=== PATIENT | male | born 1960 | race African-American/Black ===

== ENCOUNTER 2016-07-20 14:45 | Emergency (ER) | payer BC ==
[~2016-07-20] VITALS: Ht 175.3 cm; Wt 100.7 kg
[~2016-07-20 14:45] MED LIST: CENTRUM SILVER1 EAC2 PO; CLEOCIN HCL300 MG PO; CLINDAMYCIN HC150 MG PO; COMBIVENT INH; COREG CR20 MG PO; DESYREL50 MG PO; DIOVAN320 MG PO; FUROSEMIDE 20 M20 MG PO; HYDRALAZINE 2525 M1 PO; NORCO 5-325 TA1 EACH PO; PEPCID AC20 M1 PO; PREDNISONE 20 M20 M1 PO; WELLBUTRIN XL300 M2 PO
[2016-07-20] MEDS ORDERED: CELEXA20 MG PO (15:55)
[2016-07-20 16:02] LABS: ABSOLUTE NEUTROPHILS 4.3 thou/uL (1.4-8.2); BASOPHILS 1.2 % (0.0-2.0); EOSINOPHILS 1.4 % (0.0-3.0); HEMATOCRIT 42.3 % (42.0-52.0); HEMOGLOBIN 14.5 gm/dL (14.0-18.0); LYMPHOCYTES 31.2 % (24.0-44.0); MCH 31.4 pg (26.0-34.0); MCHC 34.3 g/dL (28.0-37.0); MCV 91.5 fL (80.0-100.0); MONOCYTES 6.7 % (1.0-8.0); PLATELET COUNT 224 thou/uL (150-400); POLYS 59.5 % (36.0-66.0); RBC 4.63 mil/uL (4.50-6.00); RDW 13.6 % (10.5-14.5); WBC 7.2 thou/uL (4.0-11.0)
[2016-07-20 16:04] LABS: MANUAL DIFF NO
[2016-07-20 16:10] LABS: CALCIUM 9.2 mg/dL (8.5-10.1); CREATININE 1.2 mg/dL (0.6-1.3); POTASSIUM 4.1 mmol/L (3.5-5.1)
[2016-07-20 16:14] LABS: ALBUMIN 3.3 g/dL (3.4-5.0); TOTAL BILIRUBIN 0.6 mg/dL (<0.1-1.0); TOTAL PROTEIN 7.3 g/dL (6.4-8.2)
[2016-07-20 17:41] LABS: URINE BILIRUBIN NEGATIVE (Negative); URINE BLOOD NEGATIVE (Negative); URINE COLOR YELLOW; URINE GLUCOSE-RANDOM* NEGATIVE (Negative); URINE KETONES NEGATIVE (Negative); URINE LEUKOCYTES-REFLEX NEGATIVE (Negative); URINE PROTEIN (DIPSTICK) NEGATIVE (Negative); URINE SPECIFIC GRAVITY <= 1.005 (1.003-1.035)
[2016-07-20] MEDS ORDERED: ONDANSETRON HCL4 M2 PO (17:46)
[2016-07-20] MEDS ORDERED: BENTYL 20 MG TA20 M1 PO (17:46)
[2016-07-20 18:10] VITALS: BP 120/69
== END 2016-07-20 18:15 | disposition home or self-care (01) ==
LOC: ER 14:45
PROVIDERS: Physician Assistant
DX: R11.2 Nausea with vomiting, unspecified (principal); R10.32 Left lower quadrant pain; R19.7 Diarrhea, unspecified; I10 Essential (primary) hypertension; F17.210 Nicotine dependence, cigarettes, uncomplicated; Z90.49 Acquired absence of other specified parts of digestive tract; Z88.1 Allergy status to other antibiotic agents; Z88.8 Allergy status to other drugs, medicaments and biological substances; Z88.2 Allergy status to sulfonamides

== ENCOUNTER 2016-07-25 16:43 | Emergency (ER) | payer BC ==
[~2016-07-25] VITALS: Ht 175.3 cm; Wt 100.7 kg
[~2016-07-25 16:43] MED LIST changes: +BENTYL 20 MG TA20 M1 PO; +CELEXA20 MG PO; +ONDANSETRON HCL4 M2 PO
[2016-07-25 17:47] LABS: ABSOLUTE NEUTROPHILS 3.1 thou/uL (1.4-8.2); EOSINOPHILS 1.7 % (0.0-3.0); HEMATOCRIT 39.4 % (42.0-52.0); HEMOGLOBIN 13.3 gm/dL (14.0-18.0); LYMPHOCYTES 37.6 % (24.0-44.0); MCH 30.9 pg (26.0-34.0); MCHC 33.6 g/dL (28.0-37.0); MCV 91.9 fL (80.0-100.0); MONOCYTES 8.2 % (1.0-8.0); PLATELET COUNT 252 thou/uL (150-400); POLYS 51.5 % (36.0-66.0); RBC 4.29 mil/uL (4.50-6.00); RDW 13.7 % (10.5-14.5)
[2016-07-25 17:48] LABS: MANUAL DIFF NO
[2016-07-25 17:54] LABS: CALCIUM 9.1 mg/dL (8.5-10.1); CREATININE 1.2 mg/dL (0.6-1.3); POTASSIUM 3.8 mmol/L (3.5-5.1)
[2016-07-25 17:58] LABS: ALBUMIN 3.4 g/dL (3.4-5.0); TOTAL BILIRUBIN 0.4 mg/dL (<0.1-1.0); TOTAL PROTEIN 6.9 g/dL (6.4-8.2)
[2016-07-25 18:50] VITALS: BP 136/84
[2016-07-25 19:01] LABS: URINE BILIRUBIN NEGATIVE (Negative); URINE BLOOD NEGATIVE (Negative); URINE COLOR YELLOW; URINE GLUCOSE-RANDOM* NEGATIVE (Negative); URINE KETONES TRACE (Negative); URINE LEUKOCYTES-REFLEX NEGATIVE (Negative); URINE PROTEIN (DIPSTICK) NEGATIVE (Negative)
[2016-07-25] MEDS ORDERED: PHENERGAN 25 MG25 M1 PO (19:08)
== END 2016-07-25 19:18 ==
LOC: ER 16:43
PROVIDERS: Physician Assistant
DX: R10.33 Periumbilical pain (principal); R10.13 Epigastric pain; R14.3 Flatulence; R11.0 Nausea; I10 Essential (primary) hypertension; F17.210 Nicotine dependence, cigarettes, uncomplicated; Z90.49 Acquired absence of other specified parts of digestive tract; Z98.52 Vasectomy status; Z88.1 Allergy status to other antibiotic agents; Z88.2 Allergy status to sulfonamides; Z88.8 Allergy status to other drugs, medicaments and biological substances

== ENCOUNTER 2017-06-02 22:08 | Emergency (ER) | payer BC ==
[~2017-06-02] VITALS: Ht 175.3 cm; Wt 90.7 kg
[~2017-06-02 22:08] MED LIST changes: +PHENERGAN 25 MG25 M1 PO
[2017-06-02] MEDS ORDERED: PENICILLIN V P500 MG PO (22:31)
[2017-06-02] MEDS ORDERED: MOBIC15 MG PO (22:32)
== END 2017-06-02 22:45 | disposition home or self-care (01) ==
LOC: ER 22:08
DX: K08.89 Other specified disorders of teeth and supporting structures (principal); H92.02 Otalgia, left ear; I10 Essential (primary) hypertension; Z90.49 Acquired absence of other specified parts of digestive tract; F17.210 Nicotine dependence, cigarettes, uncomplicated; Z88.2 Allergy status to sulfonamides; Z88.1 Allergy status to other antibiotic agents; Z88.8 Allergy status to other drugs, medicaments and biological substances

== ENCOUNTER 2017-07-16 22:03 | Emergency (ER) | payer BC ==
[~2017-07-16] VITALS: Ht 175.3 cm; Wt 94.3 kg
[~2017-07-16 22:03] MED LIST changes: +MOBIC15 MG PO; +PENICILLIN V P500 MG PO
[2017-07-16] MEDS ORDERED: DEPAKOTE 250MG250 MG PO (22:36)
[2017-07-16 23:12] LABS: ABSOLUTE NEUTROPHILS 4.5 thou/uL (1.4-8.2); BASOPHILS 0.7 % (0.0-2.0); EOSINOPHILS 2.6 % (0.0-3.0); HEMATOCRIT 35.9 % (42.0-52.0); HEMOGLOBIN 12.2 gm/dL (14.0-18.0); LYMPHOCYTES 30.6 % (24.0-44.0); MCH 31.3 pg (26.0-34.0); MCHC 34.1 g/dL (28.0-37.0); MCV 91.8 fL (80.0-100.0); MONOCYTES 7.6 % (1.0-8.0); PLATELET COUNT 227 thou/uL (150-400); POLYS 58.5 % (36.0-66.0); RBC 3.91 mil/uL (4.50-6.00); RDW 13.2 % (10.5-14.5); WBC 7.6 thou/uL (4.0-11.0)
[2017-07-16 23:25] LABS: CALCIUM 8.8 mg/dL (8.5-10.1); CREATININE 1.1 mg/dL (0.7-1.3); URINE BILIRUBIN NEGATIVE (Negative); URINE BLOOD NEGATIVE (Negative); URINE CLARITY CLEAR; URINE COLOR YELLOW; URINE GLUCOSE-RANDOM* NEGATIVE (Negative); URINE KETONES NEGATIVE (Negative); URINE LEUKOCYTES-REFLEX NEGATIVE (Negative); URINE NITRITE-REFLEX NEGATIVE (Negative); URINE PROTEIN (DIPSTICK) NEGATIVE (Negative)
[2017-07-16 23:30] LABS: ALBUMIN 3.1 g/dL (3.4-5.0); MAGNESIUM 1.9 mg/dL (1.8-2.4); TOTAL BILIRUBIN 0.4 mg/dL (<0.1-1.0); TOTAL PROTEIN 6.3 g/dL (6.4-8.2)
[2017-07-16 23:31] LABS: POTASSIUM 2.9 mmol/L (3.5-5.1)
[2017-07-16 23:32] LABS: AMP/METHAMP Negative (Negative); BARBITURATES Negative (Negative); BENZODIAZEPINES Negative (Negative); COCAINE Negative (Negative); METHADONE Negative (Negative); OPIATES Negative (Negative); PCP Negative (Negative)
[2017-07-16] MEDS ORDERED: DEPAKOTE ER500 MG PO (23:40)
[2017-07-16] MEDS ORDERED: DEPAKOTE 250MG250 M1 PO (23:40)
[2017-07-16] MEDS ORDERED: POTASSIUM20 PO (23:40)
== END 2017-07-17 00:02 | disposition home or self-care (01) ==
LOC: ER 22:03
PROVIDERS: Emergency Medicine
DX: G40.909 Epilepsy, unspecified, not intractable, without status epilepticus (principal); E87.6 Hypokalemia; Z76.0 Encounter for issue of repeat prescription; R25.1 Tremor, unspecified; I10 Essential (primary) hypertension; Z88.1 Allergy status to other antibiotic agents; Z88.2 Allergy status to sulfonamides; Z88.8 Allergy status to other drugs, medicaments and biological substances; F17.210 Nicotine dependence, cigarettes, uncomplicated

== ENCOUNTER 2018-02-23 20:04 | Emergency (ER) | payer BC ==
[~2018-02-23] VITALS: Ht 175.3 cm; Wt 86.2 kg
[~2018-02-23 20:04] MED LIST changes: +DEPAKOTE 250MG250 M1 PO; +DEPAKOTE 250MG250 MG PO; +DEPAKOTE ER500 MG PO; +POTASSIUM20 PO
[2018-02-23] MEDS ORDERED: CATAPRESS3 TRANSDERM (20:50)
[2018-02-23] MEDS ORDERED: NORCO 5-325 TA1 EACH PO (22:32)
[2018-02-23 23:18] VITALS: BP 168/93
== END 2018-02-23 23:20 | disposition home or self-care (01) ==
LOC: ER 20:04
DX: M77.9 Enthesopathy, unspecified (principal); I10 Essential (primary) hypertension; F17.210 Nicotine dependence, cigarettes, uncomplicated; Z88.1 Allergy status to other antibiotic agents; Z88.2 Allergy status to sulfonamides; Z88.6 Allergy status to analgesic agent; Z88.8 Allergy status to other drugs, medicaments and biological substances

== ENCOUNTER 2018-05-12 09:23 | Inpatient (IN) | payer BC ==
[~2018-05-12] VITALS: Ht 175.3 cm; Wt 89.4 kg
[2018-05-12] VITALS (11 sets, daily range): BP systolic 130–160; BP diastolic 84–110
[~2018-05-12 09:23] MED LIST changes: +CATAPRESS3 TRANSDERM; -COREG CR20 MG PO; +COREG25 MG PO; -DEPAKOTE 250MG250 MG PO; +DEPAKOTE ER250 MG PO
[2018-05-12 09:39] LABS: ABSOLUTE NEUTROPHILS 5.6 thou/uL (1.4-8.2); BASOPHILS 0.6 % (0.0-2.0); EOSINOPHILS 0.9 % (0.0-3.0); HEMATOCRIT 41.3 % (42.0-52.0); HEMOGLOBIN 13.9 gm/dL (14.0-18.0); LYMPHOCYTES 34.9 % (24.0-44.0); MCH 31.3 pg (26.0-34.0); MCHC 33.6 g/dL (28.0-37.0); MONOCYTES 5.2 % (1.0-8.0); PLATELET COUNT 288 thou/uL (150-400); POLYS 58.4 % (36.0-66.0); RBC 4.44 mil/uL (4.50-6.00); RDW 13.4 % (10.5-14.5); WBC 9.5 thou/uL (4.0-11.0)
[2018-05-12 09:42] LABS: OBSERVED RETIC COUNT 1.31 % (0.6-2.6)
[2018-05-12 09:46] LABS: ANION GAP 12 mmol/L (7-16); BUN 8 mg/dL (7-18); CALCIUM 9.4 mg/dL (8.5-10.1); CHLORIDE 103 mmol/L (98-107); CO2 23 mmol/L (21-32); CREATININE 1.1 mg/dL (0.7-1.3); GLUCOSE 88 mg/dL (74-106); SODIUM 138 mmol/L (136-145)
[2018-05-12 09:49] LABS: PROTIME 10.2 Seconds (9.3-11.4)
[2018-05-12 09:54] LABS: ALBUMIN 3.5 g/dL (3.4-5.0); SGOT 25 U/L (15-37); SGPT 32 U/L (30-65); TOTAL BILIRUBIN 0.5 mg/dL (<0.1-1.0); TOTAL PROTEIN 7.5 g/dL (6.4-8.2); TROPONIN-I <0.06 ng/mL (<0.06)
[2018-05-12] MEDS ORDERED: DEPAKOTE ER250 MG PO (10:27)
[2018-05-12] MEDS ORDERED: PRILOSEC 20 MG20 MG PO (10:28)
[2018-05-12] MEDS ORDERED: NEURONTIN 300300 M1 PO (10:28)
[2018-05-12] MEDS ORDERED: AMBIEN 5 MG TABL5 M1 PO (10:28)
--- NOTE | 2018-05-12 12:39 | 2DMMODE ---
[facility] [employer] [place] [place] [address] 2 D/M-MODE ECHOCARDIOGRAM Name: NITA MURRAY LATRELL Room #: 170-6 ADM IN .R.#: [id number] Admission: 05/12/18 Attend Phys: Eleuterio Lopez, Discharge: Date of : 64 Date of Service: 05/12/18 1239 Report #: [id number] THIS REPORT FOR: //name// APPROVED REPORT Study performed: 05/12/2018 11:10:52 EXAM: Comprehensive 2D, Doppler, and color-flow Echocardiogram Patient Location: ER Status: routine BSA: 2.05 HR: 75 bpm BP: 133/87 mmHg Rhythm: NSR Other Information Study Quality: Adequate Indications Dyspnea Chest Pain Hx: COPD, HTN, HLP, current tobacco abuse. 2D Dimensions RVDd: 33.36 mm IVSd: 12.15 (7-11mm) LVOT Diam: 24.62 (18-24mm) LVDd: 41.43 mm PWd: 10.40 (7-11mm) Ascending Ao: 33.64 (22-36mm) LVDs: 27.37 (25-40mm) Aortic Root: 35.07 mm Volumes Left Atrial Volume (Systole) Single Plane 4CH: 54.28 mL Single Plane 2CH: 45.91 mL LA ESV Index: 27.00 mL/m2 Aortic Valve AoV Peak Alonso.: 1.46 m/s AO Peak Gr.: 8.49 mmHg LVOT Max P.01 mmHg LVOT Max V: 1.42 m/s ROSITA Vmax: 4.62 cm2 Mitral Valve E/A Ratio: 0.8 [facility] [place] [place] [address] 2 D/M-MODE ECHOCARDIOGRAM Name: NITA MURRAY LATRELL Room #: 170-6 ADM IN ..#: [id number] Admission: 05/12/18 Attend Phys: Eleuterio Lopez, Discharge: Date of : 64 Date of Service: 05/12/18 1239 Report #: [id number] MV Decel. Time: 231.35 ms MV E Max Alonso.: 0.50 m/s MV A Alonso.: 0.66 m/s MV PHT: 67.09 ms IVRT: 79.58 ms Pulmonary Valve PV Peak Alonso.: 1.22 m/s PV Peak Gr.: 5.99 mmHg Pulmonary Vein P Vein S: 0.59 m/s P Vein A: 0.36 m/s P Vein D: 0.40 m/s P Vein A Dur.: 124.6 msec P Vein S/D Ratio: 1.48 Tricuspid Valve TR Peak Alonso.: 2.33 m/s RAP Estimate: 5.00 mmHg TR Peak Gr.: 21.67 mmHg PA Pressure: 27.00 mmHg Left Ventricle The left ventricle is normal size. There is normal LV segmental wall motion. Mild concentric left ventricular hypertrophy. Left ventricular systolic function is normal. LVEF is 65%. Mild diastolic dysfunction is present (impaired relaxation pattern). Right Ventricle The right ventricle is normal size. The right ventricular systolic function is normal. Atria The left atrium size is normal. The right atrium size is normal. Aortic Valve The aortic valve is normal in structure. No aortic regurgitation is present. There is no aortic valvular stenosis. Mitral Valve The mitral valve is normal in structure. There is no mitral valve regurgitation noted. No evidence of mitral valve stenosis. Tricuspid Valve The tricuspid valve is normal in structure. Trace tricuspid regurgitation. Estimated PAP is 25-30mmHg. Pulmonic Valve [address] [address] 2 D/M-MODE ECHOCARDIOGRAM Name: NITA MURRAY LATRELL Room #: 170-6 [facility] IN [facility]#: [id number] Admission: 05/12/18 Attend Phys: Eleuterio Lopez, Discharge: Date of : 64 Date of Service: 05/12/18 1239 Report #: [id number] The pulmonary valve is normal in structure. Trace pulmonic regurgitation. Great Vessels The aortic root is normal in size. The ascending aorta is normal in size. IVC is normal in size and collapses >50% with inspiration. Pericardium There is no pericardial effusion. <Conclusion> Left ventricular systolic function is normal. There is normal LV segmental wall motion. Mild concentric left ventricular hypertrophy. LVEF is 65%. Mild diastolic dysfunction The aortic valve is normal in structure. No aortic regurgitation or stenosis The mitral valve is normal in structure. No mitral insufficiency Trace tricuspid regurgitation. Estimated pulmonary artery pressure of 25-30mmHg. There is no pericardial effusion. <ELECTRONICALLY SIGNED> By: Al Mckeon MD, FACC 05/12/18 1239 1239 1239 Al Mckeon MD, FACC /INF
[2018-05-12 13:56] LABS: CHOLESTEROL 112 mg/dL (<200); HDL CHOLESTEROL 37 mg/dL (>40); LDL CHOLESTEROL 59 mg/dL (<100); TRIGLYCERIDE 82 mg/dL (<150); TROPONIN-I <0.06 ng/mL (<0.06); VLDL 16 mg/dL (<40)
--- NOTE | 2018-05-12 13:57 | EKG ---
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 : 1960 Requested By: Israel Caldwell Order Number: [id number] MD: Max Combs Measurements Intervals [place] Rate: 87 P: 69 [place]: 143 QRS: 71 QRSD: 77 T: 32 QT: 355 QTc: 427 Interpretive Statements Sinus rhythm Probable left atrial enlargement Borderline T wave abnormalities Minimal ST elevation, anterior leads Compared to ECG 12/15/2011 20:40:51 T-wave abnormality now present ST (T wave) deviation still present Electronically Signed On 05-12-2018 13:57:19 HULL MOLDER by Max Combs [email or web address] <ELECTRONICALLY SIGNED> By: Max Combs MD 05/12/18 1357 0928 0928 Max Combs MD /EPI
--- NOTE | 2018-05-12 13:57 | EKG ---
[address] [address] ELECTROCARDIOGRAM REPORT Name: NITA MURRAY Room #: 209-P ADM IN M.R.#: [id number] Admission: 05/12/18 Attend Phys: Eleuterio Lopez MD Discharge: Date of : 64 Report #: [id number] THIS REPORT FOR: //name// [facility] ED Test Date: 2018-05-12 Test Time: 09:49:47 Pat Name: NITA MURRAY Department: Room: 209 Gender: M Licensed Guide: DENYG : 1960 Requested By: Israel Caldwell Order Number: [id number] MD: Max Combs Measurements Intervals [place] Rate: 98 P: 61 [place]: 138 QRS: 71 QRSD: 90 T: 39 QT: 392 QTc: 501 Interpretive Statements Sinus rhythm Probable left atrial enlargement Compared to ECG 12/15/2011 20:40:51 ST (T wave) deviation no longer present Electronically Signed On 05-12-2018 13:57:40 MORNING SHOW HOST by Max Combs [email or web address] <ELECTRONICALLY SIGNED> By: Max Combs MD 05/12/18 1357 0949 0949 Max Combs MD /EPI
--- NOTE | 2018-05-12 19:34 | NUR ---
PT ADMITED FROM [facility]. ADMISSION HX AND ASSESSMENT COMPLETED. ALERT AND ORIENTED X4. RECEIVED PRN PAIN ME WITH PARTIAL RELIEF. RIGHT GROIN INCISION C/D/I. NO HEMATOMA NOTED. WILL CONTINUE TO MONITOR.
[2018-05-13 00:51] VITALS: BP 144/84
[2018-05-13 03:06] LABS: URINE BILIRUBIN NEGATIVE (Negative); URINE BLOOD NEGATIVE (Negative); URINE CLARITY CLEAR; URINE COLOR YELLOW; URINE GLUCOSE-RANDOM* NEGATIVE (Negative); URINE KETONES NEGATIVE (Negative); URINE LEUKOCYTES-REFLEX NEGATIVE (Negative); URINE NITRITE-REFLEX NEGATIVE (Negative); URINE PROTEIN (DIPSTICK) NEGATIVE (Negative)
--- NOTE | 2018-05-13 03:31 | NUR ---
PT POST CARDIAC CATH, WITHOUT INTERVENTION. ALERT AND ORIENTED. COMPLAIN OF HEADACHE. ONE TIME NORCO AND AMLODOPINE GIVEN AT THE BEGINNING OF THE SHIFT. CATH SITE C/D/I. POSSIBLE DC TODAY. NO FURTHER COMPLAINS.
[2018-05-13 04:13] LABS: ANION GAP 9 mmol/L (7-16); BUN 13 mg/dL (7-18); CALCIUM 8.6 mg/dL (8.5-10.1); CHLORIDE 105 mmol/L (98-107); CHOLESTEROL 118 mg/dL (<200); CO2 26 mmol/L (21-32); GLUCOSE 102 mg/dL (74-106); HDL CHOLESTEROL 38 mg/dL (>40); LDL CHOLESTEROL 54 mg/dL (<100); POTASSIUM 4.4 mmol/L (3.5-5.1); SERUM ASSESSMENT Clear; SODIUM 140 mmol/L (136-145); TC:HDL 3.1 Ratio (Not establshd); TRIGLYCERIDE 133 mg/dL (<150); VLDL 27 mg/dL (<40)
[2018-05-13 04:45] VITALS: BP 120/79
[2018-05-13 05:41] LABS: BASOPHILS 0.7 % (0.0-2.0); EOSINOPHILS 1.9 % (0.0-3.0); HEMATOCRIT 36.4 % (42.0-52.0); HEMOGLOBIN 12.3 gm/dL (14.0-18.0); LYMPHOCYTES 37.6 % (24.0-44.0); MCH 32.1 pg (26.0-34.0); MCHC 33.7 g/dL (28.0-37.0); MCV 95.1 fL (80.0-100.0); MONOCYTES 6.2 % (1.0-8.0); PLATELET COUNT 229 thou/uL (150-400); POLYS 53.6 % (36.0-66.0); RBC 3.82 mil/uL (4.50-6.00); RDW 13.5 % (10.5-14.5); WBC 7.5 thou/uL (4.0-11.0)
[2018-05-13 08:35] VITALS: BP 143/84
[2018-05-13] MEDS ORDERED: AMLODIPINE BESYL5 M1 PO (09:38)
[2018-05-13 09:53] VITALS: BP 143/84
--- NOTE | 2018-05-13 10:36 | NUR ---
ASSESSMENT DOCUMENTED. PT ALERT AND ORIENTED. DENIED HAVING PAIN OR DISCOMFORT. VSS. RIGH GROIN INCISION C/D/I. NO HEMATOMA NOTED. SEEN BY DR. EDMOND AND DR. GALINDO. ORDERS GIVEN TO DISCHARGE PT TO HOME. DISCHARGE INSRUCTIONS GIVEN TO PT AND THE . PT LEFT THE FACILITY ACCOMPANIED BY THE .
--- NOTE | 2018-05-13 17:53 | CATHLAB ---
[facility] [employer] [place] [address] INVASIVE PROCEDURE REPORT Name: NITA MURRAY LATRELL Room #: 209-P DIS IN ..#: [id number] Admission: 05/12/18 Attend Phys: Eleuterio Lopez, Discharge: 05/13/18 Date of : 64 Date of Service: 05/13/18 1752 Report #: [id number] THIS REPORT FOR: //name// APPROVED REPORT Study performed: 05/12/2018 12:03:28 Patient Details Patient Status: ED Room #: The patient is a 57 year-old male Event Personnel Alfred Salazar Shovel Oiler, Jayden Perez RN, Andie Del Rio RTR, HO Gill, Simone Marte Monitor Procedures Performed Left Heart Cath w/or w/o Coronaries [id number] [facility] Abdominal Aortography [id number] Indication Chest pain Procedure Narrative The Right Groin^ was infiltrated with 1% Lidocaine subcutaneous anesthesia. A PINNACLE 6FR Sheath #[id number] sheath was inserted into the RFA^. Coronary angiography was performed using coronary diagnostic catheters. The right coronary system was accessed and visualized with a JR4 catheter. The left coronary system was accessed and visualized with a JL4 catheter. The left ventricle was accessed and visualized with a PIGTAIL catheter. Left ventriculogram was performed in 30 degree projection. An aortogram of the abdominal aorta was performed. Closure device was deployed with a 6 Fr MYNXGRIP 6/7F #[id number]. Intraoperative Conscious Sedation Sedation start time: 12.47 Case end Time: 13.19 Fentanyl 50 mcg Versed 1.5 mg Fluoro Time: 1.44 minutes Dose: DAP 57452 cGycm2 325 mGy Contrast Type and Amount: Omnipaque 120 ml Hemodynamics The aortic pressure is 119/77 mmHg with a mean of 58 mmHg. The left [facility] [place] [address] INVASIVE PROCEDURE REPORT Name: TERRINITAAMANDA SAMS Room #: 209-P [facility] IN .R.#: [id number] Admission: 05/12/18 Attend Phys: Eleuterio Lopez, Discharge: 05/13/18 Date of : 64 Date of Service: 05/13/18 1752 Report #: [id number] ventricular pressure is 144/6 mmHg with a mean of mmHg. The left ventricular end diastolic pressure is 12 mmHg. Conclusion #1 normal left ventricular size and hyperdynamic LV function EF 65-70% #2 abdominal aorta is intact without aneurysm single renal arteries appear to be patent as does iliac system. No aneurysm #3 large left main free of disease giving rise to LAD and circumflex #4 LAD with mild mid vessel irregularity extends around the apex. No occlusive disease #5 large but nondominant circumflex system widely patent #6 large dominant right coronary artery widely patent Recommendations and plan: Continue aggressive risk factor modification. Hypertensive control and smoking cessation strongly recommended <ELECTRONICALLY SIGNED> By: Alfred Salazar MD, FACC 05/13/181751 51 51 Alfred Salazar MD, FACC /INF
== END 2018-05-13 10:41 | disposition home or self-care (01) | DRG 287 ==
LOC: ER 09:23 → 2N 10:09 → EROBS 10:09 → 2N 13:41 → ENTRNSPT 05-13 10:23 → EDTRNSPTSTS 05-13 10:25 → 2N 05-13 10:41
PROVIDERS: Internal Medicine Cardiovascular Disease; Nurse Practitioner; Physician Assistant; ADMIT Internal Medicine
DX: I20.0 Unstable angina (principal); I10 Essential (primary) hypertension; E78.5 Hyperlipidemia, unspecified; F17.210 Nicotine dependence, cigarettes, uncomplicated; G40.909 Epilepsy, unspecified, not intractable, without status epilepticus; L29.9 Pruritus, unspecified; T50.995A Adverse effect of other drugs, medicaments and biological substances, initial encounter; I07.1 Rheumatic tricuspid insufficiency; D55.0 Anemia due to glucose-6-phosphate dehydrogenase [G6PD] deficiency; E78.00 Pure hypercholesterolemia, unspecified; Z86.73 Personal history of transient ischemic attack (TIA), and cerebral infarction without residual deficits; Z90.49 Acquired absence of other specified parts of digestive tract; Z98.52 Vasectomy status; Z84.89 Family history of other specified conditions; Z88.1 Allergy status to other antibiotic agents; Z88.6 Allergy status to analgesic agent; Z88.2 Allergy status to sulfonamides; Z88.8 Allergy status to other drugs, medicaments and biological substances; I25.2 Old myocardial infarction; Z71.6 Tobacco abuse counseling; Y92.89 Other specified places as the place of occurrence of the external cause
CPT/HCPCS: 10081

== ENCOUNTER 2018-06-01 08:24 | Emergency (ER) | payer BC ==
[~2018-06-01] VITALS: Ht 175.3 cm; Wt 80.3 kg
[~2018-06-01 08:24] MED LIST changes: +AMBIEN 5 MG TABL5 M1 PO; +AMLODIPINE BESYL5 M1 PO; +NEURONTIN 300300 M1 PO; +PRILOSEC 20 MG20 MG PO
--- NOTE | 2018-06-01 08:48 | EKG ---
[place] [address] [facility] [employer] [place] [address] ELECTROCARDIOGRAM REPORT Name: NITA MURRAY Room #: PRE 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 : 1960 Requested By: Vicente Bhatia Order Number: [id number] MD: Al Mckeon Measurements Intervals [place] Rate: 98 P: 93 [place]: 159 QRS: 77 QRSD: 96 T: 69 QT: 332 QTc: 424 Interpretive Statements Sinus tachycardia Occasional premature ventricular complexes Nonspecific ST segment abnormality Compared to ECG 05/12/2018 09:49:47 Premature ventricular complexes are now present Electronically Signed On 06-01-2018 8:48:21 BANK ACCOUNTANT by Al Mckeon [email or web address] <ELECTRONICALLY SIGNED> By: Al Mckeon MD, [facility] 06/01/18 0848 0833 2 Al Mckeon MD, FACC /EPI
[2018-06-01 08:56] LABS: ANION GAP 15 mmol/L (7-16); BUN 10 mg/dL (7-18); CHLORIDE 101 mmol/L (98-107); CO2 23 mmol/L (21-32); CREATININE 1.1 mg/dL (0.7-1.3); GLUCOSE 92 mg/dL (74-106); SODIUM 139 mmol/L (136-145)
[2018-06-01 09:00] LABS: ABSOLUTE NEUTROPHILS 3.9 thou/uL (1.4-8.2); BASOPHILS 1.9 % (0.0-2.0); EOSINOPHILS 0.9 % (0.0-3.0); HEMATOCRIT 36.9 % (42.0-52.0); HEMOGLOBIN 12.9 gm/dL (14.0-18.0); LYMPHOCYTES 44.7 % (24.0-44.0); MCH 31.8 pg (26.0-34.0); MCHC 35.1 g/dL (28.0-37.0); MCV 90.5 fL (80.0-100.0); MONOCYTES 7.3 % (1.0-8.0); PLATELET COUNT 233 thou/uL (150-400); POLYS 45.2 % (36.0-66.0); RBC 4.07 mil/uL (4.50-6.00); RDW 13.6 % (10.5-14.5); WBC 8.6 thou/uL (4.0-11.0)
[2018-06-01 09:04] LABS: TROPONIN-I <0.06 ng/mL (<0.06)
[2018-06-01 10:28] VITALS: BP 120/84
== END 2018-06-01 10:29 | disposition home or self-care (01) ==
LOC: ER 08:24
PROVIDERS: Emergency Medicine
DX: R06.00 Dyspnea, unspecified (principal); R06.02 Shortness of breath; I10 Essential (primary) hypertension; E78.5 Hyperlipidemia, unspecified; Z90.49 Acquired absence of other specified parts of digestive tract; F17.210 Nicotine dependence, cigarettes, uncomplicated; Z88.1 Allergy status to other antibiotic agents; Z88.2 Allergy status to sulfonamides; Z88.5 Allergy status to narcotic agent; Z88.8 Allergy status to other drugs, medicaments and biological substances

== ENCOUNTER 2018-06-02 10:33 | Inpatient (IN) | payer BC ==
[2018-06-02] VITALS (7 sets, daily range): BP systolic 127–187; BP diastolic 86–114
[~2018-06-02] VITALS: Ht 175.3 cm; Wt 89.4 kg
[2018-06-02 11:01] LABS: ABSOLUTE NEUTROPHILS 4.7 thou/uL (1.4-8.2); EOSINOPHILS 1.7 % (0.0-3.0); HEMATOCRIT 39.5 % (42.0-52.0); HEMOGLOBIN 14.1 gm/dL (14.0-18.0); LYMPHOCYTES 32.3 % (24.0-44.0); MCH 32.6 pg (26.0-34.0); MCHC 35.7 g/dL (28.0-37.0); MCV 91.3 fL (80.0-100.0); MONOCYTES 6.1 % (1.0-8.0); PLATELET COUNT 252 thou/uL (150-400); POLYS 57.9 % (36.0-66.0); RBC 4.33 mil/uL (4.50-6.00); RDW 13.5 % (10.5-14.5); WBC 8.2 thou/uL (4.0-11.0)
[2018-06-02 11:09] LABS: ANION GAP 12 mmol/L (7-16); BUN 9 mg/dL (7-18); CALCIUM 9.9 mg/dL (8.5-10.1); CHLORIDE 103 mmol/L (98-107); CO2 25 mmol/L (21-32); CREATININE 1.1 mg/dL (0.7-1.3); GLUCOSE 106 mg/dL (74-106); POTASSIUM 3.5 mmol/L (3.5-5.1); SODIUM 140 mmol/L (136-145)
[2018-06-02 11:13] LABS: APTT 30.3 Seconds (24.5-32.8); PROTIME 10.3 Seconds (9.3-11.4)
[2018-06-02 11:15] LABS: URINE BILIRUBIN NEGATIVE (Negative); URINE BLOOD NEGATIVE (Negative); URINE CLARITY CLEAR; URINE COLOR YELLOW; URINE GLUCOSE-RANDOM* NEGATIVE (Negative); URINE KETONES NEGATIVE (Negative); URINE LEUKOCYTES-REFLEX NEGATIVE (Negative); URINE NITRITE-REFLEX NEGATIVE (Negative); URINE PROTEIN (DIPSTICK) NEGATIVE (Negative); URINE SPECIFIC GRAVITY <= 1.005 (1.005-1.035); URINE UROBILINOGEN 0.2 E.U./dl (0.2-1.0)
[2018-06-02 11:18] LABS: ALBUMIN 3.7 g/dL (3.4-5.0); MAGNESIUM 1.9 mg/dL (1.8-2.4); SGOT 16 U/L (15-37); SGPT 31 U/L (30-65); TOTAL BILIRUBIN 0.5 mg/dL (<0.1-1.0); TOTAL PROTEIN 7.6 g/dL (6.4-8.2); TROPONIN-I <0.06 ng/mL (<0.06)
--- NOTE | 2018-06-02 14:00 | NUR ---
PT ADMITTED FROM ED WITH REPORTS OF SHAKING AND SPEECH DIFFICULTY YESTERDAY FOR WHICH HE WENT TO ED.. HE BEGAN HAVING SAME SYMPTOMS AGAIN TODAY AND RETURNED TO ED..NOW HE STATES HE HAS PAIN TO RT UPPER GUM AND RATES IT A 10. HE STATED HE LOST A FRONT TOOTH A FEW WEEKS AGO..
--- NOTE | 2018-06-02 16:01 | EKG ---
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 : 1960 Requested By: Homer Ochoa Order Number: [id number] MD: Al Mckeon Measurements Intervals [place] Rate: 82 P: 63 [place]: 144 QRS: 64 QRSD: 92 T: 57 QT: 367 QTc: 429 Interpretive Statements Sinus rhythm No significant abnormality Compared to ECG 06/01/2018 08:33:51 Ventricular premature complex(es) no longer present Electronically Signed On 06-02-2018 16:01:43 ARCHITECTURAL INTERN by Al Mckeon [email or web address] <ELECTRONICALLY SIGNED> By: Al Mckeon MD, [facility] 06/02/18 1601 1044 1044 Al Mckeon MD, [facility] /EPI
[2018-06-02 16:27] LABS: AMP/METHAMP Negative (Negative); BARBITURATES Negative (Negative); BENZODIAZEPINES Negative (Negative); COCAINE Negative (Negative); METHADONE Negative (Negative); OPIATES Negative (Negative); PCP Negative (Negative)
[2018-06-03 00:02] VITALS: BP 150/90
--- NOTE | 2018-06-03 04:23 | NUR ---
Pt. c/o severe pain in his mouth and upper gum area he rated as 10/10. Pain med he received earlier part of the evening didn't help much. Pt. stated he had broken tooth was feeling fine then pain started to get worse and can't get to the dentist for some reason. MEDICAL OFFICE ASSISTANT notified and order received. Also notified of elevated BP at HS prior to giving pain med. Hydrocodone x2 given with a better relief and BP also had gotten better. He slept fair during the night. Up with minimal assist to bathroom. Mo change in neuro status. Will continue to monitor.
[2018-06-03 05:36] LABS: HEMATOCRIT 38.2 % (42.0-52.0); HEMOGLOBIN 13.3 gm/dL (14.0-18.0); MCH 31.9 pg (26.0-34.0); MCHC 34.7 g/dL (28.0-37.0); MCV 91.9 fL (80.0-100.0); RBC 4.16 mil/uL (4.50-6.00); RDW 13.2 % (10.5-14.5); WBC 9.8 thou/uL (4.0-11.0)
[2018-06-03 05:51] LABS: CALCIUM 9.6 mg/dL (8.5-10.1); CREATININE 0.9 mg/dL (0.7-1.3); POTASSIUM 3.8 mmol/L (3.5-5.1)
[2018-06-03 07:00] VITALS: BP 124/84
[2018-06-03 12:42] LABS: TSH 0.878 uIU/mL (0.358-3.740)
[2018-06-03 12:56] VITALS: BP 100/68
--- NOTE | 2018-06-03 14:26 | NUR ---
Assumed pt care at 0700. Pt c/o severe pain in mouth/upper gum rated as a 6/10. Goal 3/10. Mouth swollen on upper right side. Pt c/o headache and given Aydrocodone. Pain down to 4/10. Vital signs stable. BP improved. pt A&O x4. Moderate upper arm strength with weak bilateral lower extremities. Radial and pedal pulses 2+. NIH as charted - slight right facial abnormality due to swelling and noted slight right upper arm drift. Neurology recommending psych consult. Consult called to Dr. Scott. Awaiting physician to round. CT facial bones show multiple small abcesses involving the teeth. Physician aware;to start on Augmentin. Up with one assist. Fall precautions in place. Attempting to progress towards poc. Will continu e to monitor.
[2018-06-03 16:58] VITALS: BP 117/80
[2018-06-03 19:30] VITALS: BP 107/62
[2018-06-04 03:32] VITALS: BP 98/66
--- NOTE | 2018-06-04 04:55 | NUR ---
Ambulated in hallway at HS x1 then requested for his HS meds early including sleep med. He stated he slept better. Pain med given x1 this shift with good relief. Left facial swelling is lesser than what it was yesterday. Pt. verbalized he felt that it is less swollen and less painful than estella it was yesterday. Did not request for anxiety med. No change in neuro status. Making progress towards care plan goals.
[2018-06-04 07:47] VITALS: BP 95/60
[2018-06-04] MEDS ORDERED: CLEOCIN HCL150 MG PO (11:55)
[2018-06-04 12:25] VITALS: BP 95/60
--- NOTE | 2018-06-04 13:25 | NUR ---
Assumed care of patient at 0700. Vitals have been stable. Alert and oriented x4. Still with some right facial abnormality due to facial swelling, but swelling improved and patient states mouth feels better since starting antibiotics. Still with right sided drift and weakness. Complaints of slight headache pain. Controlled with PRN [place]. Up with one assist. Fall precautions in place. Discharge orders received. Reviewed instructions and prescriptions with patient at bedside. Verbalized understanding. IV and telemetry discontinued. Belongings gathered. Patient states does not have any prescriptions or items locked in pharmacy or security. Instructed to follow up with dentist for teeth abscess. Transported to private vehicle to discharge home.
--- NOTE | 2018-06-08 09:54 | HC ---
[facility] [place] [address] CONSULTATION Name: NITA MURRAY Room #: 356-P [facility] IN M.R.#: [id number] Admission: 06/02/18 Attend Phys: Talat Cano MD Discharge: 06/04/18 Date of : 64 Report #: [id number] THIS REPORT FOR: //name// CC: Latrell Cano DATE OF SERVICE: 06/03/2018 HISTORY OF PRESENT ILLNESS: This is a 57-year-old male patient who was admitted with multiple symptoms. When I talked to the patient, he states that he has been feeling very nervous. He said he was having shakiness. He had this shakiness sometime ago also. Six months ago, he was diagnosed with anxiety. One or two years ago, he was also diagnosed with anxiety. He has been worked up for cardiac symptoms and that workup apparently was unremarkable. He had some shortness of breath and had some anxiety and he still feels very anxious. He does have a history of hypertension. There is some history of seizures but I am not totally sure about that history and I need some more records in that regard. REVIEW OF SYSTEMS: A 14-point review of system was carried out. He appeared to have a pretty persistent history of anxiety. Rest of it was noncontributory. PAST MEDICAL HISTORY: Positive for stuttering speech, tremor and weakness at one time. FAMILY HISTORY: Negative for epilepsy. PHYSICAL EXAMINATION: NEUROLOGICAL: The patient's examination indicates he is alert. He is responsive. He can follow simple commands. His speech, concentration, fund of knowledge and memory is at his baseline. His cranial nerve examination is very difficult to carry out. He follows with some kind of unusual posture of the eyes. He moves all 4 extremities but when checked on two different occasions, he has a different strength. CARDIAC: Examination is unremarkable. LUNGS: His respiratory examination is unremarkable. VITAL SIGNS: His blood pressure is 100/68, respirations 16, pulse is 80 and temperature is 99.6. RADIOLOGICAL DATA: His MRI of the brain was unremarkable. IMPRESSION: It is unlikely that there is any neurological etiology for this patient's symptom. Symptom appeared to be predominantly psychiatric. I have reviewed all his workup and his workup so far including EEG is unremarkable. I do not have his prior workup. RECOMMENDATIONS: [address] [address] CONSULTATION Name: NITA MURRAY LATRELL Room #: 356-P [facility] IN M.R.#: [id number] Admission: 06/02/18 Attend Phys: Talat Cano MD Discharge: 06/04/18 Date of : 64 Report #: [id number] 1. Await psych consult. 2. I will work him up a little bit further for any TIA-like symptoms. I discussed all of it with the patient and discussed with the nurses in detail and I discussed with Dr. Lopez. We will check for rest of the workup. <ELECTRONICALLY SIGNED> By: Brennon Balbuena MD 06/08/18 0954 1605 0047 Brennon Balbuena MD /nt
--- NOTE | 2018-06-08 09:55 | EEG ---
[facility] [place] [address] ELECTROENCEPHALOGRAM Name: NITA MURRAY Room #: 356-P [facility] IN M.R.#: [id number] Admission: 06/02/18 Attend Phys: Tlaat Cano MD Discharge: 06/04/18 Date of : 64 Report #: [id number] THIS REPORT FOR: //name// CC: Jack Cano DATE OF SERVICE: 06/02/2018 This patient is being evaluated for seizure. EEG was done by placing the electrodes by standard 10-20 system of electrode placement. Both referential and sequential montages were used for recording. Background activity in this patient's EEG is about 10 Hz and 30 microvolts. It is a symmetrical activity. The patient became drowsy that is associated with bilateral slowing. Photic stimulation is unremarkable. Throughout the record, no active epileptiform activity was noticed. IMPRESSION: This patient's EEG is within normal limit. Thank you very much for this referral. <ELECTRONICALLY SIGNED> By: Brennon Balbuena MD 06/08/18 0955 1529 1545 Brennon Balbuena MD /nt
== END 2018-06-04 13:35 | disposition home or self-care (01) | DRG 880 ==
LOC: ER 10:33 → EROBS 12:35 → 3W 12:35 → ENTRNSPT 06-04 13:02 → EDTRNSPTSTS 06-04 13:26 → 3W 06-04 13:35
PROVIDERS: Emergency Medicine; Psychiatry & Neurology Neuromuscular Medicine; ADMIT Hospitalist
DX: F41.9 Anxiety disorder, unspecified (principal); G93.40 Encephalopathy, unspecified; F33.1 Major depressive disorder, recurrent, moderate; I10 Essential (primary) hypertension; E78.5 Hyperlipidemia, unspecified; R53.1 Weakness; I25.10 Atherosclerotic heart disease of native coronary artery without angina pectoris; F17.210 Nicotine dependence, cigarettes, uncomplicated; R47.1 Dysarthria and anarthria; K04.7 Periapical abscess without sinus; F45.9 Somatoform disorder, unspecified; Z90.49 Acquired absence of other specified parts of digestive tract; Z82.49 Family history of ischemic heart disease and other diseases of the circulatory system; Z98.52 Vasectomy status; Z88.1 Allergy status to other antibiotic agents; Z88.2 Allergy status to sulfonamides; Z88.8 Allergy status to other drugs, medicaments and biological substances; Z79.899 Other long term (current) drug therapy
CPT/HCPCS: 10879

== ENCOUNTER 2018-07-20 21:10 | Emergency (ER) | payer BC ==
[~2018-07-20] VITALS: Ht 175.3 cm; Wt 88.0 kg
[~2018-07-20 21:10] MED LIST changes: +CLEOCIN HCL150 MG PO
[2018-07-20 23:40] LABS: URINE BILIRUBIN NEGATIVE (Negative); URINE BLOOD NEGATIVE (Negative); URINE CLARITY CLEAR; URINE COLOR YELLOW; URINE GLUCOSE-RANDOM* NEGATIVE (Negative); URINE KETONES NEGATIVE (Negative); URINE LEUKOCYTES-REFLEX NEGATIVE (Negative); URINE NITRITE-REFLEX NEGATIVE (Negative); URINE PROTEIN (DIPSTICK) NEGATIVE (Negative); URINE UROBILINOGEN 0.2 E.U./dl (0.2-1.0)
[2018-07-21] MEDS ORDERED: MOBIC15 MG PO (03:33)
[2018-07-21] MEDS ORDERED: FLOMAX0.4 MG PO (03:33)
[2018-07-21 03:47] VITALS: BP 137/88
== END 2018-07-21 03:49 | disposition home or self-care (01) ==
LOC: ER 21:10
PROVIDERS: Emergency Medicine
DX: R35.0 Frequency of micturition (principal); R10.2 Pelvic and perineal pain; R10.30 Lower abdominal pain, unspecified; I10 Essential (primary) hypertension; E78.5 Hyperlipidemia, unspecified; F41.9 Anxiety disorder, unspecified; G58.9 Mononeuropathy, unspecified; I20.0 Unstable angina; F17.210 Nicotine dependence, cigarettes, uncomplicated; Z88.2 Allergy status to sulfonamides; Z88.1 Allergy status to other antibiotic agents; Z88.6 Allergy status to analgesic agent; Z88.8 Allergy status to other drugs, medicaments and biological substances; Z90.49 Acquired absence of other specified parts of digestive tract; Z86.73 Personal history of transient ischemic attack (TIA), and cerebral infarction without residual deficits

== ENCOUNTER 2018-08-31 09:25 | Inpatient (IN) | payer BC ==
[~2018-08-31] VITALS: Ht 175.3 cm; Wt 82.8 kg
[~2018-08-31 09:25] MED LIST changes: +FLOMAX0.4 MG PO
[2018-08-31 09:28] VITALS: BP 141/98
[2018-08-31 10:16] LABS: BASOPHILS 0.9 % (0.0-2.0); EOSINOPHILS 2.2 % (0.0-3.0); HEMATOCRIT 38.6 % (42.0-52.0); HEMOGLOBIN 13.2 gm/dL (14.0-18.0); LYMPHOCYTES 32.7 % (24.0-44.0); MCHC 34.3 g/dL (28.0-37.0); MCV 90.4 fL (80.0-100.0); MONOCYTES 6.7 % (1.0-8.0); PLATELET COUNT 211 thou/uL (150-400); POLYS 57.5 % (36.0-66.0); RBC 4.27 mil/uL (4.50-6.00); RDW 13.9 % (10.5-14.5); WBC 8.8 thou/uL (4.0-11.0)
[2018-08-31 10:18] LABS: ANION GAP 10 mmol/L (7-16); BUN 12 mg/dL (7-18); CALCIUM 9.3 mg/dL (8.5-10.1); CHLORIDE 101 mmol/L (98-107); CO2 28 mmol/L (21-32); CREATININE 1.1 mg/dL (0.7-1.3); GLUCOSE 104 mg/dL (74-106); POTASSIUM 3.7 mmol/L (3.5-5.1); SODIUM 139 mmol/L (136-145)
[2018-08-31 10:28] LABS: ALBUMIN 3.8 g/dL (3.4-5.0); DIRECT BILIRUBIN 0.1 mg/dL (<0.1-0.3); SGOT 18 U/L (15-37); SGPT 37 U/L (30-65); TOTAL BILIRUBIN 0.7 mg/dL (<0.1-1.0); TOTAL PROTEIN 7.3 g/dL (6.4-8.2); TROPONIN-I <0.06 ng/mL (<0.06)
[2018-08-31 13:22] VITALS: BP 134/91
[2018-08-31 13:49] VITALS: BP 151/99
[2018-08-31 14:30] VITALS: BP 170/107
--- NOTE | 2018-08-31 14:57 | NUR ---
PT ARRIVED TO ROOM 458 FROM ED IN STABLE CONDITION VIA WHEELCHAIR. ADMISSION ASSESSMENT COMPLETED. A&O,X4. C/O CHEST PRESSURE. BP ELEVATED, RECRUITMENT DIRECTOR NOTIFIED. ROOM AIR. NO SOA. NO EDEMA. SKIN INTACT. LOW FALL RISK PRECAUTIONS IN PLACE. CALL LIGHT WITHIN REACH. MAKES NEEDS KNOWN. WILL CONTINUE TO MONITOR.
[2018-08-31 19:17] VITALS: BP 132/87
--- NOTE | 2018-09-01 03:19 | NUR ---
ASSUMED CARE AROUND 1900. AXOX4. PERSISTENT CHEST PRESSURE. SEEN BY , CARDIO AT BEDSIDE. ECHO,EKG, REPEAT ESR IN AM. NO S/S ACUTE DISTRESS NOTED OR REPORTED AT THIS TIME. WILL CONT TO MONITOR FOR ANY CHANGES IN CONDITION.
[2018-09-01 04:06] VITALS: BP 149/89
[2018-09-01 05:55] LABS: ABSOLUTE NEUTROPHILS 5.4 thou/uL (1.4-8.2); BASOPHILS 0.7 % (0.0-2.0); EOSINOPHILS 2.2 % (0.0-3.0); HEMATOCRIT 37.5 % (42.0-52.0); HEMOGLOBIN 12.6 gm/dL (14.0-18.0); LYMPHOCYTES 29.3 % (24.0-44.0); MCH 30.7 pg (26.0-34.0); MCHC 33.7 g/dL (28.0-37.0); MCV 91.1 fL (80.0-100.0); MONOCYTES 6.7 % (1.0-8.0); PLATELET COUNT 202 thou/uL (150-400); POLYS 61.1 % (36.0-66.0); RBC 4.12 mil/uL (4.50-6.00); RDW 13.7 % (10.5-14.5); WBC 8.8 thou/uL (4.0-11.0)
[2018-09-01 06:01] LABS: ANION GAP 8 mmol/L (7-16); BUN 17 mg/dL (7-18); CALCIUM 9.1 mg/dL (8.5-10.1); CHLORIDE 102 mmol/L (98-107); CHOLESTEROL 141 mg/dL (<200); CO2 28 mmol/L (21-32); GLUCOSE 104 mg/dL (74-106); HDL CHOLESTEROL 44 mg/dL (>40); LDL CHOLESTEROL 70 mg/dL (<100); MAGNESIUM 2.1 mg/dL (1.8-2.4); POTASSIUM 3.9 mmol/L (3.5-5.1); SODIUM 138 mmol/L (136-145); TC:HDL 3.2 Ratio (Not establshd); TRIGLYCERIDE 138 mg/dL (<150); VLDL 28 mg/dL (<40)
[2018-09-01 06:02] LABS: SERUM ASSESSMENT Clear
[2018-09-01 07:48] VITALS: BP 151/97
--- NOTE | 2018-09-01 08:09 | EKG ---
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: 1960 : 1960 Requested By: Miryam Wilson Order Number: [id number] MD: Al Mckeon Measurements Intervals [place] Rate: 61 P: 59 [place]: 138 QRS: 58 QRSD: 81 T: 59 QT: 429 QTc: 432 Interpretive Statements Sinus rhythm ST elevation consider pericarditis Compared to ECG 06/02/2018 10:44:26 ST (T wave) deviation now present Electronically Signed On 09-01-2018 8:09:41 CDT by Al Mckeon [email or web address] ��������������������������������������������� <ELECTRONICALLY SIGNED> ���������������������������������������� By: Al Mckeon MD, [facility] ��������������������������������������������� 09/01/18 0809 0939 Al Mckeon MD, [facility] /EPI
--- NOTE | 2018-09-01 09:20 | EKG ---
[address] [address] ELECTROCARDIOGRAM REPORT Name: NITA MURRAY Room #: 458- ADM IN M.R.#: [id number] ������������������ Admission: 08/31/18 ������������������ Attend Phys: Eleuterio Lopez MD Discharge: ������������������ Date of : 64 Report #: [id number] ����������������������������������������������������������������� [id number] THIS REPORT FOR: //name// [facility] Test Date: 2018-08-31 Test Time: 22:00:36 Pat Name: NITA MURRAY Department: Room: 458 Gender: M Green Feed Attendant: Eun GRACE : 1960 Requested By: Alfred Salazar Order Number: [id number] MD: Al Mckeon Measurements Intervals [place] Rate: 68 P: 65 [place]: 138 QRS: 75 QRSD: 77 T: 74 QT: 403 QTc: 429 Interpretive Statements Sinus rhythm Ventricular premature complex Repolarization abnormality Compared to ECG 06/02/2018 10:44:26 Ventricular premature complex(es) now present Electronically Signed On 09-01-2018 9:20:32 CDT by Al Mckeon [email or web address] ��������������������������������������������� <ELECTRONICALLY SIGNED> ���������������������������������������� By: Al Mckeon MD, [facility] ��������������������������������������������� 09/01/18919 99 99 Al Mckeon MD, [facility] /EPI
--- NOTE | 2018-09-01 11:31 | 2DMMODE ---
[facility] [email or web address] [place] [address] 2 D/M-MODE ECHOCARDIOGRAM Name: NITA MURRAY LATRELL Room #: 458-P ADM IN M.R.#: [id number] ������������� Admission: 08/31/18 ������������� Attend Phys: Eleuterio Lopez, Discharge: ��� ������������� ��� Date of : 64 Date of Service: 09/01/18 1130 �� Report #: [id number] �������� ��������������������������������������������[id number] THIS REPORT FOR: //name// APPROVED REPORT Study performed: 09/01/2018 08:53:42 EXAM: Limited 2D Echocardiogram Patient Location: Bedside Room #: 458 Status: routine BSA: 1.99 HR: 55 bpm BP: 151/97 mmHg Rhythm: NSR Other Information Study Quality: Adequate Risk Factors: Cardiac Risk Factors: HTN, Hyperlipidemia, Smoking Indications Chest Pressure COPD Pericarditis 2D Dimensions IVSd: 11.11 (7-11mm) LVOT Diam: 24.00 (18-24mm) LVDd: 44.88 mm PWd: 10.80 (7-11mm) Ascending Ao: 32.73 (22-36mm) LVDs: 29.36 (25-40mm) Aortic Root: 32.54 mm LV Single Plane 4CH: 63.66 % LV Single Plane 2CH: 61.34 % Biplane EF: 64.5 % Left Ventricle The left ventricle is normal size. There is normal LV segmental wall motion. Borderline concentric left ventricular hypertrophy. The left ventricular systolic function is normal. The left ventricular ejection fraction is within the normal range. LVEF is 60-65%. Right Ventricle The right ventricle is normal size. The right ventricular systolic [facility] [email or web address] [address] 2 D/M-MODE ECHOCARDIOGRAM Name: NITA MURRAY Room #: 458-P ADM IN M.R.#: [id number] ������������� Admission: 08/31/18 ������������� Attend Phys: Eleuterio Lopez, Discharge: ��� ������������� ��� Date of : 64 Date of Service: 09/01/18 1130 �� Report #: [id number] �������� ��������������������������������������������[id number] function is normal. Atria The left atrium size is normal. The right atrium size is normal. Aortic Valve The aortic valve is normal in structure. Mitral Valve The mitral valve is normal in structure. Tricuspid Valve The tricuspid valve is normal in structure. Pulmonic Valve The pulmonary valve is normal in structure. Great Vessels The aortic root is normal in size. IVC is normal in size and collapses >50% with inspiration. Pericardium There is no pericardial effusion. <Conclusion> LVEF is 60-65%. The right ventricle is normal size. The aortic valve is normal in structure. The mitral valve is normal in structure. The aortic root is normal in size. There is no pericardial effusion. ��������������������������������������������� <ELECTRONICALLY SIGNED> ���������������������������������������� By: Alfred Salazar MD, FACC ��������������������������������������������� 05/07/19 1130 1130 113 Alfred Salazar MD, [facility] /INF
[2018-09-01 13:45] VITALS: BP 123/85
--- NOTE | 2018-09-01 14:55 | NUR ---
PT ADMITTED RELATED TO CHEST PAIN, SYNCOPE. CM REVIEWED CHART AND SPOKE WITH CARE TEAM. CM MET WITH PT AT BEDSIDE THIS DAY. PT IS A&O X4. MC ROLE INTRODUCED. PT INDICATED HE LIVES IN A HOUSE WITH HIS SPOUSE AND YOUNGEST DTR. PT INDICATED THERE ARE 6 STEPS TO ENTER HIS HOUSE AND 6 STEPS INSIDE. 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 PT INDICATED NO DME OR HH HX. PT INDICATED HE PLANS TO RETURN HOME ONCE MEDICALLY STABLE. CM TO FOLLOW INDICATED WITH DC PLANNING.
[2018-09-01] MEDS ORDERED: COLCHICINE0.6 MG PO (15:57)
[2018-09-01 16:15] VITALS: BP 123/85
--- NOTE | 2018-09-01 17:44 | NUR ---
DISHCARGED TO HOME ACCOMPAINED BY . GOOD APPETITE. DENIES PAIN OR DISCOMTFORT. ON ROOM AIR LUNGS CLEAR. UP IN ROOM WITH STEADY GAIT. VOIDS IWTHOUT DIFFICULTY. SALINE LOCK D/C'D.
== END 2018-09-01 18:48 | disposition home or self-care (01) | DRG 316 ==
LOC: ER 09:25 → EROBS 12:11 → 4W 12:11 → ENTRNSPT 09-01 17:42 → 4W 09-01 18:48
PROVIDERS: Emergency Medicine; Nurse Practitioner; ADMIT Internal Medicine
DX: I31.9 Disease of pericardium, unspecified (principal); I10 Essential (primary) hypertension; E78.5 Hyperlipidemia, unspecified; G47.00 Insomnia, unspecified; F41.9 Anxiety disorder, unspecified; G62.9 Polyneuropathy, unspecified; G40.909 Epilepsy, unspecified, not intractable, without status epilepticus; F17.210 Nicotine dependence, cigarettes, uncomplicated; D55.0 Anemia due to glucose-6-phosphate dehydrogenase [G6PD] deficiency; R91.1 Solitary pulmonary nodule; Z71.6 Tobacco abuse counseling; Z98.52 Vasectomy status; Z90.49 Acquired absence of other specified parts of digestive tract; Z86.73 Personal history of transient ischemic attack (TIA), and cerebral infarction without residual deficits; Z88.1 Allergy status to other antibiotic agents; Z88.2 Allergy status to sulfonamides; Z88.8 Allergy status to other drugs, medicaments and biological substances; Z82.49 Family history of ischemic heart disease and other diseases of the circulatory system; I25.2 Old myocardial infarction; Z79.899 Other long term (current) drug therapy
CPT/HCPCS: 10045

== ENCOUNTER → 2018-09-23 | Outpatient (CLI) | payer BC ==
[~2018-09-23] MED LIST changes: +COLCHICINE0.6 MG PO
== END ==
LOC: CAT 07:49
DX: R91.1 Solitary pulmonary nodule (principal); R59.0 Localized enlarged lymph nodes; D71 Functional disorders of polymorphonuclear neutrophils

== ENCOUNTER 2018-11-24 17:43 | Emergency (ER) | payer BC ==
[~2018-11-24] VITALS: Ht 175.3 cm; Wt 82.6 kg
[2018-11-24 19:48] LABS: URINE BILIRUBIN NEGATIVE (Negative); URINE BLOOD NEGATIVE (Negative); URINE CLARITY CLEAR; URINE COLOR YELLOW; URINE GLUCOSE-RANDOM* NEGATIVE (Negative); URINE KETONES NEGATIVE (Negative); URINE LEUKOCYTES-REFLEX NEGATIVE (Negative); URINE NITRITE-REFLEX NEGATIVE (Negative); URINE PROTEIN (DIPSTICK) NEGATIVE (Negative); URINE SPECIFIC GRAVITY 1.015 (1.005-1.035); URINE UROBILINOGEN 0.2 E.U./dl (0.2-1.0)
[2018-11-24 20:07] LABS: ABSOLUTE NEUTROPHILS 3.7 thou/uL (1.4-8.2); BASOPHILS 0.7 % (0.0-2.0); EOSINOPHILS 1.6 % (0.0-3.0); HEMATOCRIT 37.2 % (42.0-52.0); HEMOGLOBIN 12.6 gm/dL (14.0-18.0); LYMPHOCYTES 41.5 % (24.0-44.0); MCH 31.9 pg (26.0-34.0); MCHC 33.9 g/dL (28.0-37.0); MONOCYTES 6.8 % (1.0-8.0); PLATELET COUNT 246 thou/uL (150-400); POLYS 49.4 % (36.0-66.0); RBC 3.95 mil/uL (4.50-6.00); RDW 13.7 % (10.5-14.5); WBC 7.5 thou/uL (4.0-11.0)
[2018-11-24 20:17] LABS: CALCIUM 9.3 mg/dL (8.5-10.1); CREATININE 1.1 mg/dL (0.7-1.3); POTASSIUM 3.5 mmol/L (3.5-5.1)
[2018-11-24 21:59] VITALS: BP 153/103
== END 2018-11-24 22:00 | disposition home or self-care (01) ==
LOC: ER 17:43
PROVIDERS: Emergency Medicine
DX: M54.5 Low back pain (principal); G62.9 Polyneuropathy, unspecified; I10 Essential (primary) hypertension; E78.5 Hyperlipidemia, unspecified; F41.9 Anxiety disorder, unspecified; G47.00 Insomnia, unspecified; D57.3 Sickle-cell trait; F17.210 Nicotine dependence, cigarettes, uncomplicated; Z86.69 Personal history of other diseases of the nervous system and sense organs; Z86.2 Personal history of diseases of the blood and blood-forming organs and certain disorders involving the immune mechanism; Z98.52 Vasectomy status; Z88.6 Allergy status to analgesic agent; Z88.1 Allergy status to other antibiotic agents; Z88.2 Allergy status to sulfonamides; Z90.49 Acquired absence of other specified parts of digestive tract; Z98.890 Other specified postprocedural states; Z86.73 Personal history of transient ischemic attack (TIA), and cerebral infarction without residual deficits

== ENCOUNTER 2018-12-16 10:25 | Emergency (ER) | payer BC ==
[~2018-12-16] VITALS: Ht 175.3 cm; Wt 82.6 kg
[2018-12-16 11:24] LABS: BASOPHILS 1.6 % (0.0-2.0); EOSINOPHILS 3.4 % (0.0-3.0); HEMATOCRIT 38.7 % (42.0-52.0); HEMOGLOBIN 13.1 gm/dL (14.0-18.0); LYMPHOCYTES 38.2 % (24.0-44.0); MCH 31.9 pg (26.0-34.0); MCHC 33.8 g/dL (28.0-37.0); MCV 94.3 fL (80.0-100.0); MONOCYTES 7.1 % (1.0-8.0); POLYS 49.7 % (36.0-66.0); RDW 13.5 % (10.5-14.5)
[2018-12-16 11:28] LABS: ANION GAP 11 mmol/L (7-16); BUN 5 mg/dL (7-18); CALCIUM 8.8 mg/dL (8.5-10.1); CHLORIDE 104 mmol/L (98-107); CO2 26 mmol/L (21-32); GLUCOSE 98 mg/dL (74-106); POTASSIUM 3.5 mmol/L (3.5-5.1); SODIUM 141 mmol/L (136-145)
[2018-12-16 11:33] LABS: URINE BILIRUBIN NEGATIVE (Negative); URINE BLOOD NEGATIVE (Negative); URINE CLARITY CLEAR; URINE COLOR YELLOW; URINE GLUCOSE-RANDOM* NEGATIVE (Negative); URINE KETONES NEGATIVE (Negative); URINE LEUKOCYTES-REFLEX TRACE (Negative); URINE NITRITE-REFLEX NEGATIVE (Negative); URINE PROTEIN (DIPSTICK) NEGATIVE (Negative); URINE SPECIFIC GRAVITY <= 1.005 (1.005-1.035); URINE UROBILINOGEN 0.2 E.U./dl (0.2-1.0)
[2018-12-16 11:35] LABS: APTT 28.3 Seconds (24.5-32.8); PROTIME 10.1 Seconds (9.3-11.4)
[2018-12-16 11:38] LABS: ALBUMIN 3.5 g/dL (3.4-5.0); MAGNESIUM 1.9 mg/dL (1.8-2.4); SGOT 14 U/L (15-37); SGPT 21 U/L (30-65); TOTAL BILIRUBIN 0.4 mg/dL (<0.1-1.0); TOTAL PROTEIN 7.2 g/dL (6.4-8.2); TROPONIN-I <0.06 ng/mL (<0.06)
[2018-12-16 11:45] LABS: AMP/METHAMP Negative (Negative); BARBITURATES Negative (Negative); BENZODIAZEPINES Negative (Negative); COCAINE Negative (Negative); METHADONE Negative (Negative); OPIATES Negative (Negative); PCP Negative (Negative)
[2018-12-16] MEDS ORDERED: NORFLEX100 MG PO (12:03)
[2018-12-16] MEDS ORDERED: TRAMADOL 50 MG50 MG PO (12:03)
[2018-12-16] MEDS ORDERED: ANTIVERT25 MG PO (12:03)
[2018-12-16 12:21] VITALS: BP 149/105
[2018-12-16 12:36] LABS: PLATELET COUNT 198 thou/uL (150-400)
--- NOTE | 2018-12-18 13:45 | EKG ---
[address] [place] [address] ELECTROCARDIOGRAM REPORT Name: NITA MURRAY [id number] Admission: 12/16/18 Attend Phys: Discharge: 12/16/18 Date of : 64 Report #: [id number] THIS REPORT FOR: //name// [facility] ED Test Date: 2018-12-16 Test Time: 10:39:33 Pat Name: NITA MURRAY Department: Room: Gender: M Manager Philosophy: 12 : 1960 Requested By: Omari Naylor Order Number: [id number] MD: Al Mckeon Measurements Intervals [place] Rate: 66 P: 62 NC: 143 QRS: 63 QRSD: 92 T: 68 QT: 418 QTc: 438 Interpretive Statements Sinus rhythm Nonspecific ST segment abnormality Compared to ECG 08/31/2018 22:00:36 Repolarization abnormality is no longer present Electronically Signed On 12-18-2018 13:44:54 CDT by Al Mckeon [email or web address] <ELECTRONICALLY SIGNED> By: Al Mckeon MD, [facility] 12/18/18 1344 1039 103 Al Mckeon MD, FACC /EPI
== END 2018-12-16 12:22 | disposition home or self-care (01) ==
LOC: ER 10:25
PROVIDERS: Emergency Medicine
DX: R42 Dizziness and giddiness (principal); I10 Essential (primary) hypertension; M54.2 Cervicalgia; R51 Headache; F17.210 Nicotine dependence, cigarettes, uncomplicated; E78.5 Hyperlipidemia, unspecified; Z88.1 Allergy status to other antibiotic agents; Z88.8 Allergy status to other drugs, medicaments and biological substances; Z88.6 Allergy status to analgesic agent; Z88.2 Allergy status to sulfonamides; Z79.899 Other long term (current) drug therapy; Z86.73 Personal history of transient ischemic attack (TIA), and cerebral infarction without residual deficits; Z98.890 Other specified postprocedural states

== ENCOUNTER → 2019-05-07 | Outpatient (CLI) | payer BC ==
[~2019-05-07] MED LIST changes: +ANTIVERT25 MG PO; +NORFLEX100 MG PO; +TRAMADOL 50 MG50 MG PO
== END ==
LOC: MRI 08:42
DX: M47.816 Spondylosis without myelopathy or radiculopathy, lumbar region (principal); M51.26 Other intervertebral disc displacement, lumbar region; M48.062 Spinal stenosis, lumbar region with neurogenic claudication; F41.9 Anxiety disorder, unspecified; D75.A Glucose-6-phosphate dehydrogenase (G6PD) deficiency without anemia

== ENCOUNTER 2019-05-20 08:45 | Emergency (ER) | payer BC ==
[~2019-05-20] VITALS: Ht 175.3 cm; Wt 92.5 kg
[2019-05-20] MEDS ORDERED: NORCO 5-325 TA1 EAC1 PO (10:49)
[2019-05-20 11:32] VITALS: BP 177/110
== END 2019-05-20 11:36 | disposition home or self-care (01) ==
LOC: ER 08:45
DX: M54.9 Dorsalgia, unspecified (principal); I10 Essential (primary) hypertension; E78.5 Hyperlipidemia, unspecified; F17.210 Nicotine dependence, cigarettes, uncomplicated; F41.9 Anxiety disorder, unspecified; Z88.1 Allergy status to other antibiotic agents; Z88.2 Allergy status to sulfonamides; Z88.8 Allergy status to other drugs, medicaments and biological substances